=== PATIENT | female | born 1990 | race Caucasian/White ===

== ENCOUNTER 2017-02-26 21:06 | Emergency (ER) | payer OTHER ==
[2017-02-26 21:34] VITALS: BMI 34.7
--- NOTE | 2017-02-26 21:55 | OBHP ---
Datetime: 02/26/2017 21:39 IP Adm Impression: , intrauterine ; No Active Labor IP Adm Impression Other: UTI IP Admit Plan: Observation/Evaluation; Discharge home Admit Comment, IP Provider: IUP at 29wks present here today for c/o low back pain. She has care at [facility] and reports that she has been given Bactrim for a UTI. She was nauseus and stopped taking the medication. The pain is centered at the sacral area. Renal angle tenderness - Negative bilateral ly. TOCO- irregular FHR- 160s, Cx - 0/0/-3. Assessment: IUP at 29wks Urinary Tract Infection Plan: IV Fluid UA CBC, CMP. Re evaluate. D/c home if labs - unremarkable. F/U with [facility] in 1-2 days Extremities - PN: Normal Abdomen - PN: Normal Back - PN: Normal Lungs - PN: Normal Heart - PN: Normal General - PN: Normal FHR - Baseline A Provider: 160 Membranes, Provider: Intact Contraction Comments Provider: Irregular Comments, ACOG Physical Exam: Abd: Soft, NT, BS- present Lungs- clear Throat - Normal Gestation - Est Wks by US: 29.3 EGA AdmitDate IP: 29.3 IP Chief Complaint: Maternal discomfort NICHD Variability Prov Fetus A: Moderate 6-25bpm NICHD Accel Fetus A IP Provider: [id number] FHR Category Provider Fetus A: Category I NICHD Decel Fetus A IP Provider: None Dilatation, Provider: 0 Effacement, Provider: 0 Station, Provider: -3 Genitourinary Exam: Abnormal
[2017-02-26 22:09] LABS: BASO % 0.2 % (0.0-2.0); EOS # 0.1 K/uL (0.0-0.7); EOS % 0.9 % (0.0-4.0); HEMATOCRIT 34.1 % (34.0-47.0); LYMPH # 0.2 K/uL (1.0-4.3); LYMPH % 3.7 % (20.0-40.0); MEAN CELL VOLUME 80.6 fL (81.0-99.0); MEAN CORPUSCULAR HGB CONC 34.7 g/dL (33.0-37.0); MEAN PLATELET VOLUME 8.4 fL (7.2-11.7); MONO # 0.3 K/uL (0.0-0.8); MONO % 4.5 % (0.0-10.0); PLATELET COUNT 219 K/uL (130-400); RED CELL DISTRIBUTION WIDTH 13.6 % (11.5-14.5); WHITE BLOOD COUNT 5.7 K/uL (4.8-10.8)
[2017-02-26 22:26] LABS: CHLORIDE 99 mmol/L (98-107); POTASSIUM 3.7 mmol/L (3.6-5.2); SODIUM 130 mmol/L (132-148)
[2017-02-26 22:28] LABS: ALB/GLOB RATIO 0.9 (1.0-2.1); AST/SGOT 39 U/L (14-36); BILIRUBIN,TOTAL 0.9 mg/dL (0.2-1.3); CARBON DIOXIDE 19 mmol/L (22-30); GFR AFRICAN-AMERICAN > 60; TOTAL PROTEIN 7.4 g/dL (6.3-8.3)
[2017-02-26 22:29] LABS: ALKALINE PHOSPHATASE 97 U/L (38-126); ALT/SGPT 47 U/L (9-52); BLOOD UREA NITROGEN 7 mg/dL (7-17); CALCIUM 8.4 mg/dl (8.6-10.4); GLUCOSE,RANDOM 83 mg/dL (65-105)
[2017-02-26 22:44] LABS: RBC URINE 1 /hpf (0-3); URINE BACTERIA OCC (<OCC); URINE BILIRUBIN NEGATIVE (NEGATIVE); URINE BLOOD NEGATIVE (NEGATIVE); URINE COLOR Yellow (YELLOW); URINE GLUCOSE (UA) NORMAL (Normal); URINE KETONE NEGATIVE (NEGATIVE); URINE LEUKOCYTE ESTERASE TRACE Leu/uL (Negative); URINE PROTEIN NEGATIVE (NEGATIVE); WBC URINE 8 /hpf (0-5)
[2017-02-26 22:46] LABS: EOSINOPHIL 2 % (0-4); NEUTROPHIL 84 % (50-75); TOTAL CELLS COUNTED 100
[2017-02-26 22:47] LABS: LARGE PLATELETS PRESENT
[2017-02-27 03:48] VITALS: BP 118/65; PULSE 107; TEMP 101
== END 2017-02-26 23:15 | disposition home or self-care (01) ==
LOC: C.EROB 21:06
DX: O23.43 Unspecified infection of urinary tract in pregnancy, third trimester (principal); Z3A.29 29 weeks gestation of pregnancy